=== PATIENT | male | born 1990 | race African-American/Black ===

== ENCOUNTER 2017-01-02 14:30 | Emergency (ER) | payer OTHER ==
[~2017-01-02 14:30] MED LIST: AUGMENTIN PO; BENTYL10 MG PO; CIPRO HC OTIC S10 ML OT; CIPRO PO; DOXYCYCLINE HY100 M1 PO; PHENERGAN25 M1 PO; PHENERGAN25 MG PO
== END 2017-01-02 17:01 | disposition left against medical advice (07) ==
LOC: CED 14:30
DX: Z53.21 Procedure and treatment not carried out due to patient leaving prior to being seen by health care provider (principal)

== ENCOUNTER 2017-05-11 11:28 | Emergency (ER) | payer OTHER ==
[~2017-05-11] VITALS: Ht 172.7 cm; Wt 136.1 kg
[2017-05-11 11:45] LABS: URINE SOURCE CLEAN CATCH
[2017-05-11 11:51] LABS: URINE APPEARANCE CLEAR; URINE BILIRUBIN NEG (NEG); URINE BLOOD TRACE (NEG); URINE COLOR YELLOW; URINE GLUCOSE NEG (NEG); URINE KETONE NEG (NEG); URINE LEUKOCYTE ESTERASE 2+ (NEG); URINE NITRATE NEG (NEG); URINE PH 5.5 (5-8); URINE PROTEIN NEG (NEG); URINE SPECIFIC GRAVITY 1.018 (1.003-1.035)
[2017-05-11 11:53] LABS: CULTURE INDICATED? YES; URINE BACTERIA AUWI NEG (NEGATIVE); URINE SQUAMOUS EPITHELIAL CELL OCC /[HPF]; UWBCS1 AUWI 25-50 (0-5)
[2017-05-13 08:04] LABS: CHLAMYDIA TRACH Not Detected (Not Detected); N GONOR Not Detected (Not Detected)
== END 2017-05-11 12:12 | disposition home or self-care (01) ==
LOC: CED 11:28 → CFTX 11:28
PROVIDERS: Physician Assistant
DX: Z20.2 Contact with and (suspected) exposure to infections with a predominantly sexual mode of transmission (principal); J45.909 Unspecified asthma, uncomplicated
CPT/HCPCS: 81003; 87086; 87491; 87591; 96372; 99283; J0696